=== PATIENT | male | born 1990 | race Caucasian/White ===

== ENCOUNTER 2023-09-01 07:58 | Emergency (ER) | payer SELFPAY ==
[2023-09-01] MEDS ORDERED: Ketorolac Tromethamine 30 MG/ML VIAL ONE (08:37)
== END 2023-09-01 10:30 | disposition home or self-care (01) ==
LOC: CSHERS 07:58
DX: R05.9 Cough, unspecified (principal); R07.89 Other chest pain
CPT/HCPCS: 71045; 93005; 96374; J1885